=== PATIENT | male | born 1970 | race Caucasian/White ===

== ENCOUNTER 2018-03-26 11:30 | Emergency (ER) | payer OTHER ==
[~2018-03-26] VITALS: Ht 172.7 cm; Wt 65.8 kg
[~2018-03-26 11:30] MED LIST: ACETAMINOPHEN-1 EAC1 PO; BACTRIM DS TAB1 EACH PO; FLEXERIL PO; HYDROCODONE-AP1 EAC6 PO; IBUPROFEN 800800 M1 PO; MEDROL DOSPAK21 TA1 PO; NOHOMEMEDICATIONS; NORCO 5-325 TA1 EACH PO; PENICILLIN V P500 MG PO
[2018-03-26] MEDS ORDERED: CLEOCIN HCL300 MG PO (11:47)
[2018-03-26] MEDS ORDERED: NAPROSYN500 MG PO (11:47)
[2018-03-26 11:55] VITALS: BP 133/84
== END 2018-03-26 11:56 | disposition home or self-care (01) ==
LOC: M.ERS 11:30
DX: K08.89 Other specified disorders of teeth and supporting structures (principal); Z87.891 Personal history of nicotine dependence

== ENCOUNTER 2019-08-24 10:26 | Emergency (ER) | payer OTHER ==
[~2019-08-24] VITALS: Ht 172.7 cm; Wt 65.8 kg
[~2019-08-24 10:26] MED LIST changes: +CLEOCIN HCL300 MG PO; +NAPROSYN500 MG PO
[2019-08-24] MEDS ORDERED: NORCO 5-325 TA1 EAC1 PO (12:30)
[2019-08-24] MEDS ORDERED: FLEXERIL PO (12:30)
[2019-08-24 12:37] VITALS: BP 131/93
== END 2019-08-24 12:39 | disposition home or self-care (01) ==
LOC: M.ERS 10:26
DX: M54.5 Low back pain (principal); Z87.891 Personal history of nicotine dependence